=== PATIENT | female | born 1975 | race Caucasian/White ===

== ENCOUNTER 2018-04-04 16:48 | Emergency (ER) | payer MEDICAID ==
[~2018-04-04] VITALS: Ht 160 cm; Wt 140.0 kg
[~2018-04-04 16:48] MED LIST: ACET325 PO; ACYC200 PO; ALBIPROI; AZIT250 PO; BENTYL20 MG PO; CALCA500CH PO; CEPH500 PO; CLIN150; CLIN300 PO; COMBIVENT RESPIM4 GM INH; CRUTCH2 USE; CYCL10 PO; DIAZ2; DIPH50 PO; DOXY100 PO; FEXO60 PO; FLUSAL2505 INH; FLUSAL5005; HYDACE10 PO; HYDACE5 PO; HYDACE5325 PO; HYDCOR1TC TOP; HYDPAM50 PO; IBUP600 PO; IBUP800 PO; Keflex500 MG PO; LAVAP17G PO; LEVFLO500 PO; METR500 PO; NAPR375 PO; NAPR500 PO; NAPR550 PO; OXYACE10 PO; OXYACE5T PO; PERCOCET; PHENA200 PO; PROM25 PO; Percocet 5-3251 EACH PO; Peri-Colace Ta1 EACH PO; RANI150; SULTRIDS PO; Tylenol325 MG PO
[2018-04-04 17:42] LABS: BASOPHILS ABSOLUTE AUTO 0.03 K/mm3 (0.00-0.23); BASOPHILS PERCENT AUTO 1 % (0-2); EOSINOPHILS PERCENT AUTO 0 % (0-6); Hematocrit 40.1 % (33.0-51.0); Hemoglobin 13.4 g/dL (11.5-16.0); IMMATURE GRAN ABSOLUTE AUTO 0.01 K/mm3 (0.00-0.10); IMMATURE GRAN PERCENT AUTO 0 % (0-1); LYMPHOCYTES ABSOLUTE AUTO 1.55 K/mm3 (0.84-5.20); LYMPHOCYTES PERCENT AUTO 25 % (21-46); MONOCYTES ABSOLUTE AUTO 0.41 K/mm3 (0.16-1.47); MONOCYTES PERCENT AUTO 7 % (4-13); Mean Corpuscular HGB Conc 33.4 g/dL (31.5-36.5); Mean Corpuscular Volume 96 fL (80-100); Mean Platelet Volume 9.5 fL (9.1-12.4); NEUTROPHILS ABSOLUTE AUTO 4.33 K/mm3 (1.96-9.15); NEUTROPHILS PERCENT AUTO 68 % (41-73); Platelet Count 266 K/mm3 (150-400); RDW Standard Deviation 42.1 fL (35.1-46.3); Red Blood Cell Count 4.19 M/mm3 (3.80-5.20); White Blood Cell Count 6.33 K/mm3 (4.00-11.30)
[2018-04-04 18:05] LABS: Alanine Aminotransfer (ALT/SGP 54 U/L (12-78); Albumin, Blood 3.8 g/dL (3.4-5.0); Albumin/Globulin Ratio 0.9 (0.8-1.8); Alk Phos 57 U/L (50-136); Anion Gap 9 mmol/L (6-16); Aspartate Aminotrans (AST/SGOT 39 U/L (12-37); Bilirubin, Total 0.4 mg/dL (0.1-1.0); Blood Urea Nitrogen 23 mg/dL (8-24); Bun/Creatinine Ratio 23.3 (12.0-20.0); CO2, Blood 27 mmol/L (21-32); Calcium, Blood 9.3 mg/dL (8.5-10.1); Chloride, Blood 105 mmol/L (98-108); Creatinine, Blood 0.99 mg/dL (0.40-1.00); Globulin, Blood 4.1 g/dL (2.2-4.0); Glomerular Filtration Rate >60 (60-); Glucose, Blood 105 mg/dL (70-99); Potassium, Blood 3.4 mmol/L (3.5-5.5); Sodium, Blood 141 mmol/L (136-145); Total Protein, Blood 7.9 g/dL (6.4-8.2)
[2018-04-04] MEDS ORDERED: Percocet 5-3251 EACH PO (20:32)
== END 2018-04-04 21:20 | disposition home or self-care (01) ==
LOC: ER 16:48
PROVIDERS: Emergency Medicine
DX: S82.832A Other fracture of upper and lower end of left fibula, initial encounter for closed fracture (principal); S09.90XA Unspecified injury of head, initial encounter; S93.401A Sprain of unspecified ligament of right ankle, initial encounter; S90.812A Abrasion, left foot, initial encounter; S90.811A Abrasion, right foot, initial encounter; S90.512A Abrasion, left ankle, initial encounter; S90.511A Abrasion, right ankle, initial encounter; Z88.8 Allergy status to other drugs, medicaments and biological substances; Z88.0 Allergy status to penicillin; J45.909 Unspecified asthma, uncomplicated; Z87.891 Personal history of nicotine dependence; V23.4XXA Motorcycle driver injured in collision with car, pick-up truck or van in traffic accident, initial encounter; Z91.048 Other nonmedicinal substance allergy status
CPT/HCPCS: 29515; 71045; 73552; 73562-LT; 73562-RT; 73610; 74177; 80053; 83690; 85025; 96361; 96374; 96375; 99284; J2060; J3010; J7030; Q9967

== ENCOUNTER 2018-04-19 17:23 | Emergency (ER) | payer MEDICAID ==
[~2018-04-19] VITALS: Ht 160 cm; Wt 59.0 kg
[2018-04-19] MEDS ORDERED: COMBIVENT RESPIM4 GM (18:39)
[2018-04-19 20:00] LABS: Calcium, Ionized (POC) 0.94 mmol/L (1.10-1.46); Chloride (POC) 106 mmol/L (98-108); Creatinine (POC) 0.9 mg/dL (0.6-1.0); Glucose (ISTAT POC) 85 mg/dL (70-99); Hemoglobin (POC) 13.3 g/dL (12.0-16.0); Potassium (POC) 4.4 mmol/L (3.5-5.5); Sodium (POC) 137 mmol/L (135-148); Total CO2 (POC) 20 mmol/L (21-32)
[2018-04-19] MEDS ORDERED: IBUP800 PO (21:03)
[2018-04-19] MEDS ORDERED: Percocet 5-3251 EACH PO (21:03)
== END 2018-04-19 21:27 | disposition home or self-care (01) ==
LOC: ER 17:23
PROVIDERS: Physician Assistant
DX: S82.452D Displaced comminuted fracture of shaft of left fibula, subsequent encounter for closed fracture with routine healing (principal); J45.909 Unspecified asthma, uncomplicated; Z91.018 Allergy to other foods; Z88.8 Allergy status to other drugs, medicaments and biological substances; Z88.6 Allergy status to analgesic agent; Z88.0 Allergy status to penicillin; Z87.891 Personal history of nicotine dependence; Z79.51 Long term (current) use of inhaled steroids; V29.49 Motorcycle driver injured in collision with other motor vehicles in traffic accident
CPT/HCPCS: 73590; 73610; 80047; 85014

== ENCOUNTER 2019-09-22 19:06 | Emergency (ER) | payer OTHER ==
[~2019-09-22] VITALS: Ht 160 cm; Wt 62.1 kg
[~2019-09-22 19:06] MED LIST changes: +COMBIVENT RESPIM4 GM
[2019-09-22 20:39] LABS: Source, Urine Clean Catch
[2019-09-22 20:41] LABS: Bilirubin, Urine Neg (Neg); Blood, Urine 1+ (Neg); Glucose Qualitative, Urine Neg (Neg); Ketones, Urine 1+ (Neg); Leukocyte Esterase, Urine Neg (Neg); Nitrite, Urine Neg (Neg); Protein, Urine 1+ (Neg); Urobilinogen, Urine 1+ (Normal)
[2019-09-22 21:05] LABS: Appearance, Urine Clear (Clear); Color, Urine Yellow (P-Yellow)
[2019-09-22 21:07] LABS: Bacteria Mod /hpf; Red Blood Cells, Urine Rare /hpf (0-2); Squamous Epithelial Cells Few /hpf (Few); White Blood Cells, Urine Not Seen /hpf (0-5)
[2019-09-22] MEDS ORDERED: IBUP600 PO (21:42)
== END 2019-09-22 22:17 | disposition home or self-care (01) ==
LOC: ER 19:06
PROVIDERS: Physician Assistant
DX: M54.5 Low back pain (principal); J45.909 Unspecified asthma, uncomplicated; Z91.018 Allergy to other foods; Z88.8 Allergy status to other drugs, medicaments and biological substances; Z88.6 Allergy status to analgesic agent; Z88.0 Allergy status to penicillin; Z79.51 Long term (current) use of inhaled steroids
CPT/HCPCS: 72100; 72170; 81001; 81025; 87086; 96372; 99283-25; J1885

== ENCOUNTER 2021-04-29 16:02 | Emergency (ER) | payer OTHER | END 2021-04-29 16:46 | disposition home or self-care (01) | LOC: ER 16:02 | DX: L03.114 Cellulitis of left upper limb (principal); J45.909 Unspecified asthma, uncomplicated; Z88.8 Allergy status to other drugs, medicaments and biological substances; Z91.018 Allergy to other foods; Z79.899 Other long term (current) drug therapy; Z87.891 Personal history of nicotine dependence ==

== ENCOUNTER 2025-01-26 19:27 | Emergency (ER) | payer OTHER ==
[~2025-01-26] VITALS: Ht 160 cm; Wt 65.8 kg
[2025-01-26 19:47] VITALS: BP 115/90
[2025-01-26] MEDS ORDERED: Trimethoprim/Sulfamethoxazole DS Tab PO ONE (20:35)
[2025-01-26] MEDS ORDERED: Cephalexin Monohydrate 500 MG Cap PO ONE (20:40)
[2025-01-26] MEDS ORDERED: Ketorolac Tromethamine 15mg Vial IM ONE (20:40)
[2025-01-26] MEDS ORDERED: BACTRIM DS TAB1 EAC1 PO (20:45)
[2025-01-26] MEDS ORDERED: CEPH500 PO (20:45)
== END 2025-01-26 21:00 | disposition home or self-care (01) ==
LOC: ER 19:27
DX: L03.115 Cellulitis of right lower limb (principal); N73.2 Unspecified parametritis and pelvic cellulitis; J45.909 Unspecified asthma, uncomplicated; Z88.2 Allergy status to sulfonamides; Z88.0 Allergy status to penicillin; Z88.8 Allergy status to other drugs, medicaments and biological substances; Z91.018 Allergy to other foods; Z79.899 Other long term (current) drug therapy; Z79.891 Long term (current) use of opiate analgesic; Z79.51 Long term (current) use of inhaled steroids; Z79.52 Long term (current) use of systemic steroids; Z79.83 Long term (current) use of bisphosphonates; Z79.1 Long term (current) use of non-steroidal anti-inflammatories (NSAID)
CPT/HCPCS: 96372; 99282-25; A9270; J1885